=== PATIENT | male | born 1980 | race Two or more races ===

== ENCOUNTER 2018-03-22 14:28 | Emergency (ER) | payer OTHER ==
[2018-03-22 14:37] VITALS: BP 127/79
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
== END 2018-03-22 16:00 | disposition home or self-care (01) ==
LOC: ER 14:28
DX: S29.019A Strain of muscle and tendon of unspecified wall of thorax, initial encounter (principal); M54.9 Dorsalgia, unspecified; V43.52XA Car driver injured in collision with other type car in traffic accident, initial encounter; E78.00 Pure hypercholesterolemia, unspecified; I10 Essential (primary) hypertension; E11.9 Type 2 diabetes mellitus without complications
CPT/HCPCS: 99283